=== PATIENT | male | born 1940 | race Caucasian/White ===

== ENCOUNTER → 2023-09-06 08:30 | Outpatient (REF) | payer MEDICARE, OTHER, SELFPAY | LOC: WOUND 08:30 | PROVIDERS: ATTENDING PHYSICIAN Surgery; FAMILY PHYSICIAN Physician Assistant Medical | DX: I87.311 Chronic venous hypertension (idiopathic) with ulcer of right lower extremity (principal); L97.812 Non-pressure chronic ulcer of other part of right lower leg with fat layer exposed; I87.2 Venous insufficiency (chronic) (peripheral); I10 Essential (primary) hypertension; R73.01 Impaired fasting glucose; E66.01 Morbid (severe) obesity due to excess calories | CPT/HCPCS: 29581; 99213 ==

== ENCOUNTER → 2023-09-13 08:59 | Outpatient (REF) | payer MEDICARE, OTHER, SELFPAY | LOC: WOUND 08:59 | PROVIDERS: ATTENDING PHYSICIAN Surgery; FAMILY PHYSICIAN Physician Assistant Medical | DX: I87.311 Chronic venous hypertension (idiopathic) with ulcer of right lower extremity (principal); L97.812 Non-pressure chronic ulcer of other part of right lower leg with fat layer exposed; I87.2 Venous insufficiency (chronic) (peripheral); I10 Essential (primary) hypertension; R73.01 Impaired fasting glucose; E66.01 Morbid (severe) obesity due to excess calories | CPT/HCPCS: 99213 ==

== ENCOUNTER → 2023-11-21 07:40 | Outpatient (REF) | payer MEDICARE, OTHER, SELFPAY | LOC: WOUND 07:40 | PROVIDERS: ATTENDING PHYSICIAN Surgery; FAMILY PHYSICIAN Physician Assistant Medical | DX: I87.311 Chronic venous hypertension (idiopathic) with ulcer of right lower extremity (principal); L97.212 Non-pressure chronic ulcer of right calf with fat layer exposed; C44.209 Unspecified malignant neoplasm of skin of left ear and external auricular canal; I87.2 Venous insufficiency (chronic) (peripheral); K21.9 Gastro-esophageal reflux disease without esophagitis; I10 Essential (primary) hypertension | CPT/HCPCS: 29580; 99214 ==

== ENCOUNTER → 2023-11-28 08:40 | Outpatient (REF) | payer MEDICARE, OTHER, SELFPAY | LOC: WOUND 08:40 | PROVIDERS: ATTENDING PHYSICIAN Surgery; FAMILY PHYSICIAN Physician Assistant Medical | DX: I87.311 Chronic venous hypertension (idiopathic) with ulcer of right lower extremity (principal); L97.212 Non-pressure chronic ulcer of right calf with fat layer exposed; C44.209 Unspecified malignant neoplasm of skin of left ear and external auricular canal; I87.2 Venous insufficiency (chronic) (peripheral); K21.9 Gastro-esophageal reflux disease without esophagitis; I10 Essential (primary) hypertension | CPT/HCPCS: 29580 ==

== ENCOUNTER → 2023-12-05 08:49 | Outpatient (REF) | payer MEDICARE, OTHER, SELFPAY | LOC: WOUND 08:49 | PROVIDERS: ATTENDING PHYSICIAN Surgery; FAMILY PHYSICIAN Physician Assistant Medical | DX: I87.311 Chronic venous hypertension (idiopathic) with ulcer of right lower extremity (principal); L97.212 Non-pressure chronic ulcer of right calf with fat layer exposed; C44.209 Unspecified malignant neoplasm of skin of left ear and external auricular canal; I87.2 Venous insufficiency (chronic) (peripheral); K21.9 Gastro-esophageal reflux disease without esophagitis; I10 Essential (primary) hypertension | CPT/HCPCS: 29580 ==

== ENCOUNTER → 2023-12-12 10:13 | Outpatient (REF) | payer MEDICARE, OTHER, SELFPAY | LOC: WOUND 10:13 | PROVIDERS: ATTENDING PHYSICIAN Surgery; FAMILY PHYSICIAN Physician Assistant Medical | DX: I87.311 Chronic venous hypertension (idiopathic) with ulcer of right lower extremity (principal); L97.212 Non-pressure chronic ulcer of right calf with fat layer exposed; C44.209 Unspecified malignant neoplasm of skin of left ear and external auricular canal; I87.2 Venous insufficiency (chronic) (peripheral) | CPT/HCPCS: 29580; 99212 ==

== ENCOUNTER → 2023-12-18 08:21 | Outpatient (REF) | payer MEDICARE, OTHER, SELFPAY | LOC: WOUND 08:21 | PROVIDERS: ATTENDING PHYSICIAN Surgery; FAMILY PHYSICIAN Physician Assistant Medical | DX: I87.311 Chronic venous hypertension (idiopathic) with ulcer of right lower extremity (principal); L97.212 Non-pressure chronic ulcer of right calf with fat layer exposed; C44.209 Unspecified malignant neoplasm of skin of left ear and external auricular canal; I87.2 Venous insufficiency (chronic) (peripheral); K21.9 Gastro-esophageal reflux disease without esophagitis; I10 Essential (primary) hypertension | CPT/HCPCS: 29580 ==

== ENCOUNTER → 2023-12-26 09:02 | Outpatient (REF) | payer MEDICARE, OTHER, SELFPAY | LOC: WOUND 09:02 | PROVIDERS: ATTENDING PHYSICIAN Surgery; FAMILY PHYSICIAN Physician Assistant Medical | DX: I87.311 Chronic venous hypertension (idiopathic) with ulcer of right lower extremity (principal); L97.212 Non-pressure chronic ulcer of right calf with fat layer exposed; C44.209 Unspecified malignant neoplasm of skin of left ear and external auricular canal; I87.2 Venous insufficiency (chronic) (peripheral); K21.9 Gastro-esophageal reflux disease without esophagitis; I10 Essential (primary) hypertension | CPT/HCPCS: 29580; 99212 ==

== ENCOUNTER → 2024-01-02 08:38 | Outpatient (REF) | payer MEDICARE, OTHER, SELFPAY | LOC: WOUND 08:38 | PROVIDERS: ATTENDING PHYSICIAN Surgery; FAMILY PHYSICIAN Physician Assistant Medical | DX: I87.311 Chronic venous hypertension (idiopathic) with ulcer of right lower extremity (principal); L97.212 Non-pressure chronic ulcer of right calf with fat layer exposed; I87.2 Venous insufficiency (chronic) (peripheral) | CPT/HCPCS: 99212 ==

== ENCOUNTER → 2024-01-07 07:59 | Outpatient (REF) | payer MEDICARE, OTHER, SELFPAY | LOC: WOUND 07:59 | PROVIDERS: ATTENDING PHYSICIAN Surgery; FAMILY PHYSICIAN Physician Assistant Medical | DX: I87.311 Chronic venous hypertension (idiopathic) with ulcer of right lower extremity (principal); L97.212 Non-pressure chronic ulcer of right calf with fat layer exposed; C44.209 Unspecified malignant neoplasm of skin of left ear and external auricular canal; I87.2 Venous insufficiency (chronic) (peripheral); K21.9 Gastro-esophageal reflux disease without esophagitis; I10 Essential (primary) hypertension | CPT/HCPCS: 29580; 99213 ==

== ENCOUNTER → 2024-01-16 08:47 | Outpatient (REF) | payer MEDICARE, OTHER, SELFPAY | LOC: WOUND 08:47 | PROVIDERS: ATTENDING PHYSICIAN Surgery; FAMILY PHYSICIAN Physician Assistant Medical | DX: I87.311 Chronic venous hypertension (idiopathic) with ulcer of right lower extremity (principal); L97.212 Non-pressure chronic ulcer of right calf with fat layer exposed; I87.2 Venous insufficiency (chronic) (peripheral) | CPT/HCPCS: 29580; 99213 ==

== ENCOUNTER → 2024-01-23 09:11 | Outpatient (REF) | payer MEDICARE, OTHER, SELFPAY | LOC: WOUND 09:11 | PROVIDERS: ATTENDING PHYSICIAN Surgery; FAMILY PHYSICIAN Physician Assistant Medical | DX: I87.311 Chronic venous hypertension (idiopathic) with ulcer of right lower extremity (principal); L97.212 Non-pressure chronic ulcer of right calf with fat layer exposed; I87.2 Venous insufficiency (chronic) (peripheral); I89.0 Lymphedema, not elsewhere classified; C44.209 Unspecified malignant neoplasm of skin of left ear and external auricular canal; K21.9 Gastro-esophageal reflux disease without esophagitis; I10 Essential (primary) hypertension | CPT/HCPCS: 99212 ==

== ENCOUNTER → 2024-02-24 10:02 | Outpatient (REF) | payer MEDICARE, OTHER, SELFPAY | LOC: WOUND 10:02 | PROVIDERS: ATTENDING PHYSICIAN Surgery; FAMILY PHYSICIAN Physician Assistant Medical | DX: I87.311 Chronic venous hypertension (idiopathic) with ulcer of right lower extremity (principal); L97.212 Non-pressure chronic ulcer of right calf with fat layer exposed; L97.812 Non-pressure chronic ulcer of other part of right lower leg with fat layer exposed; I87.2 Venous insufficiency (chronic) (peripheral); I89.0 Lymphedema, not elsewhere classified; C44.209 Unspecified malignant neoplasm of skin of left ear and external auricular canal; K21.9 Gastro-esophageal reflux disease without esophagitis; I10 Essential (primary) hypertension | CPT/HCPCS: 29580; 99213 ==

== ENCOUNTER → 2024-03-02 10:03 | Outpatient (REF) | payer MEDICARE, OTHER, SELFPAY | LOC: WOUND 10:03 | PROVIDERS: ATTENDING PHYSICIAN Surgery; FAMILY PHYSICIAN Physician Assistant Medical | DX: I87.311 Chronic venous hypertension (idiopathic) with ulcer of right lower extremity (principal); L97.212 Non-pressure chronic ulcer of right calf with fat layer exposed; L97.812 Non-pressure chronic ulcer of other part of right lower leg with fat layer exposed; I87.2 Venous insufficiency (chronic) (peripheral); I89.0 Lymphedema, not elsewhere classified; C44.209 Unspecified malignant neoplasm of skin of left ear and external auricular canal; K21.9 Gastro-esophageal reflux disease without esophagitis; I10 Essential (primary) hypertension | CPT/HCPCS: 29580; 99213 ==

== ENCOUNTER 2024-03-07 09:25 | Inpatient (IN) | payer MEDICARE, OTHER, SELFPAY ==
[2024-03-06] VITALS (8 sets, daily range): BP systolic 121–171; BP diastolic 66–91; PULSE 69; BMI 39.5
--- NOTE | 2024-03-06 00:35 | ED.GENMED ---
History of Present Illness
<EUGENE Marte - Last Filed: 03/06/24 01:38>
General
Chief Complaint: Skin Surface Trauma
Source: patient
Exam Limitations: none
Time Seen by Provider: 03/05/24 23:58
Nursing documentation reviewed up to this point in time: agreed with
History of Present Illness
History of Present Illness:
Pt is an 84 y/o M who is s/p Mohs surgery on nose for skin cancer today. His procedure was at 8 AM today and did not leave the surgical center until 8 PM. The pt presents today for continued bleeding from the surgical sites and postoperative orbital
edema. The pt reports MENDEZ, nausea, and lightheadedness. He also reports that he feels blood dripping from his nose to the back of his throat. He denies difficulty breathing or vomiting.
The pt has a pmhx of HTN, edema, and GERD. The pt states that he takes a daily ASA 81 mg. His records also indicate that he takes Eliquis, furosemide, cholecalciferol, Losartan, Metoprolol, and Omeprazole. The pt reports that he took all of his
medication this morning, including the ASA, Eliquis,and furosemide.
Past History
<EUGENE Marte - Last Filed: 03/06/24 01:38>
Past History
ED Past Medical History: Cancer (skin), GERD, HTN and Other (Sciatica, lymphedema, venous insufficiency)
ED Past Surgical History: Other (Mohs [facility])
Social History
Tobacco: Former smoker
Alcohol: None
Drug: None
Personal:
Living: alone
Employment: Retired
Family History
Family History: Other (Noncontributory)
Review of Systems
<EUGENE Marte - Last Filed: 03/06/24 01:38>
Review of Systems
Constitutional: Reports no symptoms
EENT: Reports no symptoms
Respiratory: Reports no symptoms
Cardiac: Reports no symptoms
ABD/GI: Reports nausea
: Reports no symptoms
Musculoskeletal: Reports no symptoms
Skin: Reports no symptoms
Neurological: Reports headache
Endocrine: Reports no symptoms
Hematologic/Lymphatic: Reports bleeding and bruising
Psychiatric: Reports no symptoms
Phy Exam
<EUGENE Marte - Last Filed: 03/06/24 01:38>
General Physical Exam
General Presentation: well appearing and mild distress
General age: appears stated age
General Skin: warm
General Habitus: normal
General Mental: alert
General Hydration: appears well hydrated
ENT Exam
ENT Exam: swallowing well
Eye Exam
Eyelid Exam: edematous: Bilateral, traumatic tissue swelling: Bilateral and hematoma: Bilateral
Cause of eyelid Inflammation: other: Bilateral (postoperative)
Cardiovascular Exam
Cardiovascular Exam: regular rate/rhythm and normal peripheral pulses
Pulmonary Exam
Pulmonary Exam: no respiratory distress
Gastrointestinal Exam
Gastrointestinal Exam: soft and non distended
Neurological Exam
Neurological Exam: alert and oriented x3
Musculoskeletal Exam
Musculoskeletal Exam: full ROM and neuro vasc intact
Skin Exam
Skin Exam: erythema and other (active bleeding from surgical sites on nose, periorbital edema)
Psychiatric Exam
Psychiatric Exam: normal mood/affect
Course
<EUGENE Marte - Last Filed: 03/06/24 01:38>
Orders/Labs/Results
Orders:
Orders
03/06/24 02:28
Complete Blood Count/With Diff Urgent
03/06/24 02:29
Comprehensive Metabolic Panel Urgent
Prothrombin Time Urgent
Vital Signs
Initial and Last Documented VS:
Initial Vital Signs
Temp Pulse Resp BP Pulse Ox
97.9 F 68 28 161/68 96
03/06/24 00:01 03/06/24 00:01 03/06/24 00:01 03/06/24 00:01 03/06/24 00:01
Last Documented Vital Signs
Temp Pulse Resp BP Pulse Ox
97.9 F 68 28 161/68 95
03/06/24 00:01 03/06/24 00:01 03/06/24 00:01 03/06/24 00:05 03/06/24 00:15
<Brenton Morgan DO - Last Filed: 03/06/24 02:38>
Orders/Labs/Results
Orders:
Orders
03/06/24 02:28
Complete Blood Count/With Diff Urgent
03/06/24 02:29
Comprehensive Metabolic Panel Urgent
Prothrombin Time Urgent
Vital Signs
Initial and Last Documented VS:
Initial Vital Signs
Temp Pulse Resp BP Pulse Ox
97.9 F 68 28 161/68 96
03/06/24 00:01 03/06/24 00:01 03/06/24 00:01 03/06/24 00:01 03/06/24 00:01
Last Documented Vital Signs
Temp Pulse Resp BP Pulse Ox
97.9 F 68 28 161/68 95
03/06/24 00:01 03/06/24 00:01 03/06/24 00:01 03/06/24 00:05 03/06/24 00:15
<EUGENE Marte - Last Filed: 03/06/24 01:38>
*Critical Care Note
Total Time (30-74mins, 75-104mins- exclusive of procedures): Not Applicable
<EUGENE Marte - Last Filed: 03/06/24 01:38>
Update Note
Update Note:
0130: Pt reported that he was feeling hot and was sweating. There is still active bleeding from the incision sites. Surgifoam was replaced and he was given water with ice.
ED Attending Note
<EUGENE Marte - Last Filed: 03/06/24 01:38>
-
Portions of this chart may have been created with voice recognition software.� Occasional wrong word or��sound alike� substitutions may have occurred due to the inherent limitations of voice recognition software.
<Brenton Morgan DO - Last Filed: 03/06/24 02:38>
ED Attending Note
Patient seen and examined by attending physician: Yes
I performed the substantive portion of visit, reviewed & personally made and approve the management plan that is documented in note by myself or SARAHI.: Yes
ED Attending Note:
Pleasant 84-year-old male that had 12 hours of Mohs surgery on his face for skin cancer. Patient presents today for continued bleeding. Patient was discharged from the outpatient surgical center around 8 PM. Patient denies fever, difficulty
breathing, or vomiting. Patient is on Eliquis. He states he took his medications this morning. Patient was seen in conjunction with the PA student. I have reviewed and agree with the history and treatment plan presented. On my independent
physical exam, patient is awake, alert, and oriented x3 patient has a midline suture from the bridge of his nose down to his upper lip. It deviates to the left side of the nose. It is bleeding right by the naris. We did put Surgifoam on the bleed
which seemed to stop it. We will continue to observe.
Bleeding seems to have stopped. With continued observation, patient's eyes are swelling to the point where they are nearly closed. He states that he could see slightly out of both eyes. Patient admits to being alone at home. I feel that he needs
to be observed in the hospital as being discharged home would be a safety risk at this point. Patient is in agreement. Discussed plan with hospitalist who agrees to admit patient. Lab work ordered.
Discharge Plan
Departure
Patient Disposition: Admit
Date of Disposition: 03/06/24
Time of Disposition: 02:37
Admit to: Med/Surg
Presentation/result/management discussed w/ accepting MD/DO: Hospitalist
Discharge Problem:
Postoperative swelling, Postoperative bleeding from incision
Prescriptions:
No Action
multivitamin 1 EACH tablet
1 ea PO DAILY
furosemide 40 MG tablet
40 mg PO BID@0800,1600
losartan 25 MG tablet
25 mg PO DAILY
metoprolol tartrate 50 MG tablet
50 mg PO BID
omeprazole 20 MG capsule,delayed release(DR/EC)
20 mg PO DAILY
cholecalciferol (vitamin D3) 2,000 UNIT tablet
2,000 unit PO DAILY
aspirin 81 mg Tablet,Delayed Release (Dr/Ec)
81 mg PO DAILY
Eliquis 5 mg Tablet
5 mg PO BID
doxycycline hyclate 100 mg capsule
100 mg PO BID Qty: 14 0RF
clotrimazole [Lotrimin AF (clotrimazole)] 1 % cream
1 applic topical Q12H Qty: 45 0RF
Referrals:
Hugo Sahu PA-C [Family Provider] -
Interventions
Interventions:
*Risk Screen - Suicide Last Done: 03/06/24 00:18
*General Assessment Last Done: 03/06/24 00:18
*Neglect/Abuse Screening Last Done: 03/06/24 00:18
ED- Fall Risk Assessment Last Done: 03/06/24 00:18
*ED COVID-19 Vaccine History Last Done: 03/06/24 00:18
ED-Skin Assessment Last Done: 03/06/24 00:18
Discharge Date and Time
Print Language: TAJIK
[2024-03-06 03:44] LABS: % Basophils 0.2 % (0-2); % Eosinophils 0.9 % (0-6); % Immature Granulocytes 0.3 % (0-0.5); % Lymphocytes 11.2 % (20.5-51.1); % Monocytes 8.6 % (1.7-9.3); % Neutrophils 78.8 % (42.2-75.2); Absolute Eosinophils 0.1 10^3/uL (0-0.7); Absolute Lymphocytes 0.7 10^3/uL (1.2-3.4); Absolute Monocytes 0.6 10^3/uL (0.1-0.6); Absolute Neutrophils 5.1 10^3/uL (1.4-6.5); Hematocrit 38.8 % (39.0-52.0); Hemoglobin 13.5 g/dL (13.0-18.0); Mean Corp Hgb Conc. 34.8 g/dL (33.0-37.0); Mean Corpuscular Hgb 31.2 pg (27.0-31.0); Mean Corpuscular Volume 89.6 fL (80.0-94.0); Nucleated Red Blood Cells % 0 % (-); Red Blood Cell Count 4.33 10^6/uL (4.70-6.10); Red Cell Dist. Width 13.5 % (11.5-14.5); White Blood Cell Count 6.5 10^3/uL (4.8-10.8)
[2024-03-06 03:53] LABS: PT 15.3 Sec (11.4-14.6)
[2024-03-06 04:11] LABS: Platelet Count 90 10^3/uL (130-400)
[2024-03-06 04:12] LABS: Mean Platelet Volume 10.2 fL (7.4-10.4)
--- NOTE | 2024-03-06 04:42 | HPS.HSE ---
Family Physician
-
Family Physician: Hugo Sahu PA-C
Chief Complaint
-
Bleeding
History of Present Illness
Patient is an 84y M with PMH significant for hypertension and chronic venous insufficiency who presents to ED complaining of bleeding / swelling s/p Mohs surgery earlier today. Patient notes that he was in the Dermatology office today from 8AM
to 8PM for Mohs surgery to the nose. Once he returned home this evening, he noted persistent bleeding from the nose and dripping into the back of the throat. This did not improve with pressure, etc at home and patient presented to the ED for
further evaluation. Patient was evaluated in the ED. Surgifoam was applied to the areas of bleeding and hemostasis achieved.
Patient was noted to have significant degree of periorbital edema / ecchymosis and his vision was impaired as a result.
Patient take ASA 81mg daily but denies any other 'blood thinners', etc.
He was previously on Eliquis (on his med list here) but this was in 2021 for a LE DVT and he is no longer on this medication.
Medical History
Past Medical History
Past Medical History: Reports Other
Additional Past Medical History:
Hypertension
Venous Insufficiency
Venous Stasis Ulcerations
History of RLE DVT
Diverticular Disease
Obesity
Skin Cancer
Past Surgical History: Reports Other
Additional Past Surgical History:
Mohs Surgery (today)
Denies any previous surgeries.
Social History
Tobacco: Non-smoker
Alcohol: None
Drug: None
Family History
Family History: Not pertinent
Allergies / Home Medications
Allergies reflects when Allergies were last updated in [facility].
Home Medications with original date entered in [facility]
Allergy/Medication List:
Patient does not recall all of his current medications.
His significant other will bring his meds / list in the AM.
Review of Systems
-
History Source: Patient
A 12 point ROS was completed and negative except as noted: Yes
Constitutional: Reports Fatigue; Denies Fever or Chills
EENT: Reports Other (Bleeding from nose. Swelling around eyes / nose.)
Respiratory: Reports Trouble Breathing (Nasal congestion / swelling.); Denies Cough
Cardiac: Denies Chest Pain or Palpitations
Abdomen/GI: Denies Abdominal Pain, Nausea, Vomiting or Diarrhea
: Denies Dysuria or Frequency
Neurological: Reports Headache; Denies Dizzy
Physical Exam
Vital Signs
Vital Signs
Temp Pulse Resp BP Pulse Ox
97.9 F 68 28 161/68 95
03/06/24 00:01 03/06/24 00:01 03/06/24 00:01 03/06/24 00:05 03/06/24 00:15
Physical Exam
General: Other (84y M in mild distress due to swelling / congestion)
HEENT: Other (Bilateral periorbital hematomas / edema - L > R. Post-surgical changes of the nose without active bleeding at present.)
Respiratory: Clear; No Wheezes, Rales or Rhonchi
Cardiac: S1/S2 and Regular Rhythm; No Murmur
GI: Soft, Non Tender, Non Distended and Normal Bowel Sounds
Musculoskeletal: No Clubbing, No Cyanosis and Other (1-2+ LE edema - b//l compression garments in place.)
Neuro: AO x 3
Laboratory Results
-
03/06/24 03:18
Laboratory Results
Total Bilirubin Cancelled 03/06/24 03:18
AST Cancelled 03/06/24 03:18
ALT Cancelled 03/06/24 03:18
Alkaline Phosphatase Cancelled 03/06/24 03:18
Impression/Plan
-
A/P: Patient is an 84y M with PMH significant for hypertension and skin cancer who presents to ED complaining of bleeding and swelling s/p Mohs procedure earlier today.
Facial Edema / Hematomas
Post-Surgical Bleeding
- Observe overnight for further evaluation and supportive care.
- Hemostasis achieved in the ED with Surgifoam, etc.
- Cold application, anti-inflammatories, etc.
- Monitor for any new / recurrent bleeding.
- Monitor for improvement in edema, visual acuity, etc.
- Would consider formal Derm evaluation.
- Patient is not apparently on any anticoagulant medications (see HPI).
Benign Hypertension
- Unclear med regimen - ? metoprolol daily by patient recollection.
- Will continue this for now with holding parameters pending formal med rec.
Chronic Venous Insufficiency
Venous Stasis Wound(s)
- Continue compression therapy.
- Follow-up with Wound Care as an outpatient as per usual.
Mild Thrombocytopenia
- Chronic. Platelets somewhat decreased from usual baseline.
- Would expect significant bleeding with count of 90k however.
- Follow for changes in platelet counts and consider transfusion if significant decrease / continued or recurrent bleeding.
Obesity due to excess calories
- Affects all aspects of care.
- Encourage healthy diet and increased activity with goal of weight loss.
DVT Prophylaxis: SCDs
Code Status: Full
[2024-03-06 05:38] LABS: ALT (SGPT) 25 U/L (0-50); AST (SGOT) 37 U/L (17-59); Albumin 3.3 g/dl (3.5-5.0); Alkaline Phosphatase 68 U/L (38-126); Blood Urea Nitrogen 18 mg/dl (9-20); Calcium 8.6 mg/dl (8.4-10.2); Carbon Dioxide 26 mmol/L (22-30); Chloride 104 mmol/L (98-107); Estimated Creatinine Clearance 86 ml/min; Glucose 110 mg/dl (70-99); Potassium 4.6 mmol/L (3.5-5.1); Sodium 139 mmol/L (135-145); Total Bilirubin 2.3 mg/dl (0.2-1.3); Total Protein 5.9 g/dl (6.3-8.2); eGFR > 60.00
--- NOTE | 2024-03-06 06:40 | PTCARENOTE ---
Pt received from ED at 0620. Pt pleasant, AAOX3, VSS, and able to walk into room. Pt complains of 6.10 MENDEZ pain and pt was given PRN tylenol. Pt receptive to room, call nix and railings. Pt bed in lowest position and call nix within reach. Pt
informed of importance of call nix usage and pt replays understanding and cooperation. Will continue with current plan of care.
[2024-03-06] MEDS: TYLENOL 650 MG PO (07:25)
[2024-03-06] MEDS: TOPROL XL 50 MG PO (08:16)
[2024-03-06] MEDS: NON-FORMULARY ITEM 1 UNIT PO ×2 (11:19→19:38)
[2024-03-06] MEDS: TORADOL 15 MG IV (14:47)
--- NOTE | 2024-03-06 15:08 | W.PN.HOSP.TC ---
Today's Communication/Plan
-
Remains with significant periorbital ecchymosis and edema to
Monitor closely.
Follow CBC including platelet level.
Physical therapy assessment.
Assessment / Plan
Assessment / Plan
Impression:
Patient is an 84y M with PMH significant for hypertension and skin cancer who presents to ED complaining of bleeding and swelling s/p Mohs procedure earlier today.
Facial Edema / Hematomas
Post-Surgical Bleeding
- Observe overnight for further evaluation and supportive care.
- Hemostasis achieved in the ED with Surgifoam, etc.
- Cold application, anti-inflammatories, etc.
- Monitor for any new / recurrent bleeding.
- Monitor for improvement in edema, visual acuity, etc.
- Patient is not apparently on any anticoagulant medications (see HPI).
Benign Hypertension
- Unclear med regimen - ? metoprolol daily by patient recollection.
- Will continue this for now with holding parameters pending formal med rec.
Chronic Venous Insufficiency
Venous Stasis Wound(s)
- Continue compression therapy.
- Follow-up with Wound Care as an outpatient as per usual.
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
- Chronic. Platelets somewhat decreased from usual baseline.
- Would expect significant bleeding with count of 90k however.
- Follow for changes in platelet counts and consider transfusion if significant decrease / continued or recurrent bleeding.
Obesity due to excess calories
- Affects all aspects of care.
- Encourage healthy diet and increased activity with goal of weight loss.
DVT Prophylaxis: SCDs
Code Status: Full
Anticipated Discharge: 24 - 48 hours
Subjective/Interval History
-
Date of Service: March 06, 2024
Objective Data
-
Labs:
Laboratory Results
03/06/24 03/06/24
03:18 05:09
WBC 6.5
Hgb 13.5
Hct 38.8 L
Plt Count 90 L
PT 15.3 H
INR 1.20
Sodium Cancelled 139
Potassium Cancelled 4.6
Chloride Cancelled 104
Carbon Dioxide Cancelled 26
BUN Cancelled 18
Creatinine Cancelled 0.8
Glucose Cancelled 110 H
Calcium Cancelled 8.6
Total Bilirubin Cancelled 2.3 H
AST Cancelled 37
ALT Cancelled 25
Alkaline Phosphatase Cancelled 68
Vital Signs:
Vital Signs
Temp Pulse Resp BP Pulse Ox
98.2 F 70 18 121/69 96
03/06/24 06:40 03/06/24 06:40 03/06/24 06:40 03/06/24 06:40 03/06/24 06:40
Physical Exam
-
General: Well Developed, Well Nourished and No Apparent Distress
HEENT: Other (Bilateral periorbital ecchymosis and edema)
Respiratory: Clear to Auscultation; Negative Wheezes or Rhonchi
Cardiac: Regular Rhythm and S1/S2; Negative Murmur
GI: Soft, Nontender, Nondistended and Normal Bowel Sounds
Musculoskeletal: No Clubbing and No Cyanosis; Negative No Edema
Neuro: Awake
Psych: Calm
--- NOTE | 2024-03-06 15:35 | CM ---
Addendum entered by Alessia Whiteside 03/06/24 15:42:
Home with [facility], Meals on Wheels information provided and [employer] for delivery information for groceries.
Original Note:
electrical and instrumentation manager reviewed patient's chart and met with patient and patient was admitted under OBS, [facility] letter provided to patient, signed and placed on chart. Patient was admitted after a fall. Patient states he lives alone in a one story home with 3
steps to enter, patient is independent with adl's and ambulation, has a quad cane and walker at home. Patient drives.
Pharmacy: [facility]
PCP: Hugo Sahu
Plan; Home when stable, patient would benefit from visiting nurses, referral sent to [facility].
--- NOTE | 2024-03-06 15:43 | VNURNOTE ---
Home Health Liaison met with patient at bedside to discuss [facility] nurse/therapy, visits, schedule and homebound status. Patient is agreeable and understands that visits at home will be 2-3 x per week to assess and teach medical management. [facility]
brochure provided with contact information. Patient is aware that [facility] will contact them for start of care in 1-2 days after discharge from .
[facility] referral completed in [facility].
[2024-03-07] MEDS: TYLENOL 650 MG PO (01:54)
[2024-03-07 05:45] LABS: Hematocrit 37.4 % (39.0-52.0); Hemoglobin 12.9 g/dL (13.0-18.0); Mean Corp Hgb Conc. 34.5 g/dL (33.0-37.0); Mean Corpuscular Hgb 31.3 pg (27.0-31.0); Mean Corpuscular Volume 90.8 fL (80.0-94.0); Mean Platelet Volume 10.7 fL (7.4-10.4); Platelet Count 81 10^3/uL (130-400); Red Blood Cell Count 4.12 10^6/uL (4.70-6.10); Red Cell Dist. Width 13.6 % (11.5-14.5)
[2024-03-07 05:54] LABS: Blood Urea Nitrogen 19 mg/dl (9-20); Calcium 8.9 mg/dl (8.4-10.2); Carbon Dioxide 31 mmol/L (22-30); Chloride 102 mmol/L (98-107); Estimated Creatinine Clearance 69 ml/min; Glucose 99 mg/dl (70-99); Potassium 5.4 mmol/L (3.5-5.1); Sodium 140 mmol/L (135-145); eGFR > 60.00
[2024-03-07 07:00] VITALS: BP 149/90
[2024-03-07] MEDS: TOPROL XL 50 MG PO (09:21)
[2024-03-07] MEDS: LASIX 40 MG PO (09:22)
[2024-03-07] MEDS: NON-FORMULARY ITEM 1 UNIT PO ×2 (09:22→19:27)
--- NOTE | 2024-03-07 09:22 | W.PN.HOSP.TC ---
Addendum entered and electronically signed by Pato Lewis MD 03/07/24 09:44:
Physical Exam
-
General: Well Developed and No Apparent Distress.
HEENT: Normocephalic, bruising noted with sutures on face/nasal bridge
Respiratory:limited, clear.
Cardiac: Regular Rhythm and S1/S2;
GI: Soft, Nontender, Nondistended and Normal Bowel Sounds;
Musculoskeletal: No Clubbing, No Cyanosis
Skin: Negative Rash
Neuro: Awake, Alert, Oriented, AO x to self and surroundings, followed commands.
Psych : calm
Original Note:
Today's Communication/Plan
-
ok to wash face with soup and water
c/w PT
Tylenol for pain
Resume Lasix.
Assessment / Plan
Assessment / Plan
Impression:
Patient is an 84y M with PMH significant for hypertension and skin cancer who presents to ED complaining of bleeding and swelling s/p Mohs procedure earlier today.
Facial Edema / Hematomas
Post-Surgical Bleeding
Acute blood loss anemia
still having bruising and edema of face but able to see more today
- Hemostasis achieved in the ED with Surgifoam, etc.
- Cold application, anti-inflammatories, etc.
- No new / recurrent bleeding.
- Patient is not apparently on any anticoagulant medications (see HPI).
- ok to wash face with soup and water
Benign Hypertension
-c/w BB
will add Lasix
- Will as k pharmacy help with meds.
Hyperkalemia, resume Lasix
Chronic Venous Insufficiency
Venous Stasis Wound(s)
- Continue compression therapy.
- Follow-up with Wound Care as an outpatient as per usual.
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
- Chronic. Platelets somewhat decreased from usual baseline.
- Would expect significant bleeding with count of 90k however.
- Follow for changes in platelet counts and consider transfusion if significant decrease / continued or recurrent bleeding.
Obesity due to excess calories
- Affects all aspects of care.
- Encourage healthy diet and increased activity with goal of weight loss.
DVT Prophylaxis: SCDs
Code Status: Full
Total time spent to see the patient, examine the patient on the floor, review data and lab results, discuss treatment plan with patient, nursing staff around 55 minutes
Anticipated Discharge: Within 24 hours
Subjective/Interval History
-
Date of Service: March 07, 2024
No chest pain
No sob
No fevers
Objective Data
-
Labs:
Laboratory Results
03/07/24
05:01
WBC 5.0
Hgb 12.9 L
Hct 37.4 L
Plt Count 81 L
Sodium 140
Potassium 5.4 H
Chloride 102
Carbon Dioxide 31 H
BUN 19
Creatinine 1.0
Glucose 99
Calcium 8.9
Vital Signs:
Vital Signs
Temp Pulse Resp BP Pulse Ox
98.6 F 64 18 149/90 95
03/07/24 07:00 03/07/24 07:00 03/07/24 07:00 03/07/24 07:00 03/07/24 07:00
I&O
03/06/24 03/07/24 03/08/24
06:59 06:59 06:59
Intake Total 720 / 720
Balance 720 / 720
[2024-03-07 15:00] VITALS: BP 143/90
[2024-03-07 23:31] VITALS: BP 119/82
[2024-03-08 07:56] VITALS: BP 109/67
[2024-03-08] MEDS: LASIX 40 MG PO (09:14)
[2024-03-08] MEDS: TOPROL XL 50 MG PO (09:14)
[2024-03-08] MEDS: NON-FORMULARY ITEM 1 UNIT PO ×2 (09:14→20:00)
[2024-03-08 09:27] LABS: Blood Urea Nitrogen 21 mg/dl (9-20); Carbon Dioxide 31 mmol/L (22-30); Chloride 99 mmol/L (98-107); Estimated Creatinine Clearance 69 ml/min; Glucose 105 mg/dl (70-99); Potassium 4.1 mmol/L (3.5-5.1); Sodium 141 mmol/L (135-145); eGFR > 60.00
[2024-03-08 09:38] LABS: Hematocrit 42.8 % (39.0-52.0); Hemoglobin 14.7 g/dL (13.0-18.0); Mean Corp Hgb Conc. 34.3 g/dL (33.0-37.0); Mean Corpuscular Volume 93.2 fL (80.0-94.0); Mean Platelet Volume 10.4 fL (7.4-10.4); Platelet Count 105 10^3/uL (130-400); Red Blood Cell Count 4.59 10^6/uL (4.70-6.10); Red Cell Dist. Width 13.8 % (11.5-14.5); White Blood Cell Count 6.8 10^3/uL (4.8-10.8)
--- NOTE | 2024-03-08 15:11 | CM ---
Patient seen bedside, discussed plan for [facility] to work with patient once stable for discharge. CM reviewed IMM with patient, patient not willing to sign at this time, left in room for patient. CM will continue to follow for all discharge planning
needs.
Plan; home with [facility].
[2024-03-08 16:00] VITALS: BP 146/85
[2024-03-08 23:38] VITALS: BP 149/79
[2024-03-09 06:35] VITALS: BMI 36.9
[2024-03-09 07:44] VITALS: BP 111/62
[2024-03-09] MEDS: TOPROL XL 50 MG PO (08:03)
[2024-03-09] MEDS: LASIX 40 MG PO (08:03)
[2024-03-09] MEDS: NON-FORMULARY ITEM 1 UNIT PO ×2 (08:03→20:14)
[2024-03-09 08:43] LABS: Glucose - Point of Care 152 mg/dl (70-99)
--- NOTE | 2024-03-09 09:28 | W.PN.HOSP.TC ---
Today's Communication/Plan
-
Discharge tomorrow
Assessment / Plan
Assessment / Plan
Impression:
Patient is an 84y M with PMH significant for hypertension and skin cancer who presents to ED complaining of bleeding and swelling s/p Mohs procedure earlier today.
Facial Edema / Hematomas
Post-Surgical Bleeding
Acute blood loss anemia
# Post operative bruising and edema of face
- He feels the swelling is less, sometime some blood spotting from nasal area
- Hemostasis achieved in the ED with Surgifoam.
- No new / recurrent bleeding. No respiratory, swallowing or vision compromise.
- Patient is not apparently on any anticoagulant medications (see HPI).
- ok to wash face with soup and water
- Monitor tonight, plan for discharge tomorrow
- PT rec home PT vs SNF
Benign Hypertension
-c/w BB
-Added Lasix
#Hyperkalemia, resumes Lasix
Resolved
Chronic Venous Insufficiency
Venous Stasis Wound(s)
- Continue compression therapy.
- Follow-up with Wound Care as an outpatient as per usual.
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
- Chronic. Platelets somewhat decreased from usual baseline.
- Would expect significant bleeding with count of 90k however.
- Follow for changes in platelet counts and consider transfusion if significant decrease / continued or recurrent bleeding.
Obesity due to excess calories
- Affects all aspects of care.
- Encourage healthy diet and increased activity with goal of weight loss.
DVT Prophylaxis: SCDs
Code Status: Full
Updated at bedside 03/09
Total time spent to see the patient on the floor, examine the patient, review data and lab results, discuss treatment plan with patient, nursing staff around 35 minutes.
Physical Exam
General: Frail, elderly, no acute distress
HEENT: Normocephalic, EOMI, MMM
Mohs surgical incision intact, no bleeding noted
Diffuse ecchymosis
Respiratory: Clear to Auscultation bilaterally
Cardiac: Normal S1/S2, Regular Rate and Rhythm
GI: Soft, Nontender, Nondistended, Normal Bowel Sounds
Extremities: No Clubbing, Cyanosis, or Edema
Neuro: Nonfocal/Grossly Intact
Psych: Calm, Cooperative
Derm: No Visible lesions
Anticipated Discharge: Within 24 hours
Subjective/Interval History
-
Date of Service: March 09, 2024
Patient complains of dry eyes. No fever, no vomiting.
Objective Data
-
Vital Signs:
Vital Signs
Temp Pulse Resp BP Pulse Ox
98.5 F 63 20 111/62 100
03/09/24 07:44 03/09/24 07:44 03/09/24 07:44 03/09/24 07:44 03/09/24 07:44
I&O
03/08/24 03/09/24 03/10/24
06:59 06:59 06:59
Intake Total 2039 720 / 720
Balance 2039 720 / 720
--- NOTE | 2024-03-09 11:16 | CM ---
Home with [facility], patient has information on Meals on Wheels, and delivery service for groceries from [employer].
Plan; Home with [facility], friend to transport patient to home.
[2024-03-09] MEDS: REFRESH EYE DROPS (PF) 1 DROPS OPHTH ×3 (13:58→20:14)
[2024-03-09 14:35] VITALS: PULSE 81
[2024-03-09 15:47] VITALS: BP 130/62
[2024-03-09 23:40] VITALS: BP 116/72
[2024-03-10 06:33] VITALS: BMI 36.7
--- NOTE | 2024-03-10 07:34 | W.PN.HOSP.TC ---
Today's Communication/Plan
-
Discharge home today
Assessment / Plan
Assessment / Plan
Impression:
Patient is an 84y M with PMH significant for hypertension and skin cancer who presents to ED complaining of bleeding and swelling s/p Mohs procedure earlier today.
Facial Edema / Hematomas
Post-Surgical Bleeding
Acute blood loss anemia
# Post operative bruising and edema of face
- Patient is NOT on eliquis at home. Was only on aspirin 81 mg daily
- He feels the swelling is less, sometime some blood spotting from nasal area
- Hemostasis achieved in the ED with Surgifoam.
- No new / recurrent bleeding. No respiratory, swallowing or vision compromise.
- Patient is not apparently on any anticoagulant medications (see HPI).
- Ok to wash face with soap and water
- Medically stable for discharge home with home PT/VN
- Continue holding aspirin 81 mg daily for 3 more days upon dc, then resume
- Follow-up with Derm later this week
Benign Hypertension
-Continue metoprolol, Lasix
-Resume losartan upon discharge
#Hyperkalemia, resumes Lasix
Resolved
Chronic Venous Insufficiency
Venous Stasis Wound(s)
- Continue compression therapy.
- Follow-up with Wound Care as an outpatient as per usual.
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
- Chronic. Platelets somewhat decreased from usual baseline.
- Would expect significant bleeding with count of 90k however.
- Follow for changes in platelet counts and consider transfusion if significant decrease / continued or recurrent bleeding.
Obesity due to excess calories
- Affects all aspects of care.
- Encourage healthy diet and increased activity with goal of weight loss.
DVT Prophylaxis: SCDs
Code Status: Full
Updated at bedside 03/09
Physical Exam
General: Frail, elderly, no acute distress
HEENT: Normocephalic, EOMI, MMM
Mohs surgical incision intact, no bleeding noted
Diffuse ecchymosis
Respiratory: Clear to Auscultation bilaterally
Cardiac: Normal S1/S2, Regular Rate and Rhythm
GI: Soft, Nontender, Nondistended, Normal Bowel Sounds
Extremities: No Clubbing, Cyanosis, or Edema
Neuro: Nonfocal/Grossly Intact
Psych: Calm, Cooperative
Derm: No Visible lesions
Anticipated Discharge: Today
Subjective/Interval History
-
Date of Service: March 10, 2024
Patient denies facial pain. No recurrence of bleeding. No fever, no vomiting.
Objective Data
-
Vital Signs:
Vital Signs
Temp Pulse Resp BP Pulse Ox
98.4 F 64 18 116/72 97
03/09/24 23:40 03/09/24 23:40 03/09/24 23:40 03/09/24 23:40 03/09/24 23:40
I&O
03/09/24 03/10/24 03/11/24
06:59 06:59 06:59
Intake Total 720 / 720 1919
Balance 720 / 720 1919
[2024-03-10 08:05] VITALS: BP 120/90
[2024-03-10] MEDS: TOPROL XL 50 MG PO (08:05)
[2024-03-10] MEDS: REFRESH EYE DROPS (PF) 1 DROPS OPHTH ×2 (08:06→11:23)
[2024-03-10] MEDS: LASIX 40 MG PO (08:06)
[2024-03-10] MEDS: NON-FORMULARY ITEM 1 UNIT PO (08:07)
[2024-03-10 10:48] VITALS: BP 143/59; O2SAT 96
[2024-03-10] MEDS: OCEAN, SALINE MIST 2 SPRAYS NASAL (11:22)
[2024-03-10] MEDS: OCEAN, SALINE MIST NASAL (11:35)
--- NOTE | 2024-03-10 11:43 | PN.CDI ---
CDI
- -
CDI:
Physician Documentation Request
Admit Date: 03/07/24 09:25
Dear Doctor Do,
Patient admitted for post-operative hematoma.
ER Physician Documentation: 'The pt presents today for continued bleeding from the surgical sites...He also reports that he feels blood dripping from his nose to the back of his throat... The pt reports that he took all of his medication this
morning, including the ASA, Eliquis,and furosemide.'
03/09 Hospitalist PN: 'Facial Edema / Hematomas. Post-Surgical Bleeding'
Please clarify the relationship between these conditions:
Yes, post-surgical bleeding is related to/exacerbated by Eliquis
No, post-surgical bleeding is not related to/exacerbated by Eliquis
Unable to determine
Use of terms such as suspected, likely, concern for, or probable (associated with a specific diagnosis that is being evaluated, monitored, or treated as if it exists) are acceptable and can be coded in the inpatient setting, when documented at the
time of discharge.
Thank you,
Esperanza Mascorro RN, BSN
CDI Specialist
Available via [place] text
Please use your independent medical judgment in providing your response.
[2024-03-10 13:05] VITALS: BP 140/76
--- NOTE | 2024-03-10 17:34 | W.DCSUMMARY ---
Discharge Summary
Discharge Data
Date of Admission: 03/07/24
Date of Discharge: 03/10/24
-
Pending Results: No
Hospital Course
Discharge diagnosis:
Postsurgical facial bleeding
Facial edema/hematoma
Recent Mohs microsurgery to the nose
Hyperkalemia
Essential hypertension
Chronic venous insufficiency
Venous stasis wound
Mild thrombocytopenia
Obesity due to excess calories
Hospital course:
84-year-old male with a past medical history of hypertension, hyperlipidemia, and chronic venous insufficiency, was admitted for postsurgical facial bleeding and facial hematoma. On the day of admission, patient had Mohs microsurgery on his nose.
Upon returning home, he had persistent bleeding, and came to the ER. Patient is no longer on Eliquis. He only takes aspirin 81 mg daily. Hemostasis was achieved in the ER with Surgifoam.
Patient had hyperkalemia. His losartan was held. His hyperkalemia resolved. He can resume losartan upon discharge.
Patient had thrombocytopenia. His platelets were 90,000 on admission, dropped to 81,000, and improved to 105,000 on the day.
Patient's facial bleeding was monitored, and he received supportive care. He did not have any recurrence of bleeding. He was able to breathe and eat. His hemoglobin was monitored, and remained normal at 14.7. He is medically stable for
discharge. He needs to follow-up with his primary care doctor and recreation officer in less than 1 week.
Disposition: Home with home care
Discharge planning: Required 39 minutes
Discharge Plan
-
Patient Disposition: Home with Home Care
Discharge Diagnosis/Procedures: Postsurgical bleeding, facial hematoma, hyperkalemia
Condition: Fair
Diet: 2 Gram Sodium
Activity: As tolerated
Driving Restrictions: As prior to admission
Activity Restrictions/Additional Instructions:
Please follow-up with your recreation officer and your family doctor in less than 1 week.
Referrals:
Luis Alberto,Hugo, PA-C [Family Provider] - in less than 1 week
Prescriptions:
New
Saline Nasal 0.65 % Aerosol,[place]
2 sprays intranasal QID 10 Days Qty: 1 0RF
Continued
multivitamin 1 EACH tablet
1 ea PO DAILY
furosemide 40 MG tablet
40 mg PO BID@0800,1600
losartan 25 MG tablet
25 mg PO DAILY
metoprolol tartrate 50 MG tablet
50 mg PO BID
omeprazole 20 MG capsule,delayed release(DR/EC)
20 mg PO DAILY
doxycycline hyclate 100 mg capsule
100 mg PO BID
mineral oil-isopropyl myristat Lotion
1 applic TOPICAL DAILY
Patient Comments:
apply to legs
cholecalciferol (vitamin D3) 50 mcg (2,000 unit) Tablet
50 mcg PO DAILY
Held
aspirin 81 mg Tablet,Delayed Release (Dr/Ec)
81 mg PO DAILY
Hold Instructions: Resume on 03/14/24.
Discharge Orders:
Discharge Patient (As Directed); Ordered 03/10/24
Ordered By: Robbie Avina
Discharge Date and Time
Discharge Date/Time: 03/10/24 13:17
Print Language: TURKISH
== END 2024-03-10 13:17 | disposition home health service (06) | DRG 920 ==
LOC: 4 WEST ACU 09:25
PROVIDERS: Internal Medicine; ADMITTING PHYSICIAN Hospitalist; ATTENDING PHYSICIAN Family Medicine; EMERGENCY PHYSICIAN Student in an Organized Health Care Education/Training Program; FAMILY PHYSICIAN Physician Assistant Medical
PROC: 2W4 Placement, Anatomical Regions, Packing (ICD-10-PCS; 2024-03-06)
DX: L76.21 Postprocedural hemorrhage of skin and subcutaneous tissue following a dermatologic procedure (principal); D62 Acute posthemorrhagic anemia; C44.301 Unspecified malignant neoplasm of skin of nose; E78.5 Hyperlipidemia, unspecified; I10 Essential (primary) hypertension; E87.5 Hyperkalemia; D69.6 Thrombocytopenia, unspecified; E66.09 Other obesity due to excess calories; I87.2 Venous insufficiency (chronic) (peripheral); I89.0 Lymphedema, not elsewhere classified; K21.9 Gastro-esophageal reflux disease without esophagitis; I87.8 Other specified disorders of veins; Z87.891 Personal history of nicotine dependence; Z86.718 Personal history of other venous thrombosis and embolism; Z68.36 Body mass index [BMI] 36.0-36.9, adult
CPT/HCPCS: 80048; 80053; 82962; 85025; 85027; 85610; 97116; 97162; 97166; 97530; 99285

== ENCOUNTER → 2024-03-11 10:56 | Outpatient (REF) | payer MEDICARE, OTHER, SELFPAY | LOC: WOUND 10:56 | PROVIDERS: ATTENDING PHYSICIAN Surgery; FAMILY PHYSICIAN Physician Assistant Medical | DX: I87.311 Chronic venous hypertension (idiopathic) with ulcer of right lower extremity (principal); L97.212 Non-pressure chronic ulcer of right calf with fat layer exposed; L97.812 Non-pressure chronic ulcer of other part of right lower leg with fat layer exposed; I87.2 Venous insufficiency (chronic) (peripheral); I89.0 Lymphedema, not elsewhere classified; C44.209 Unspecified malignant neoplasm of skin of left ear and external auricular canal; K21.9 Gastro-esophageal reflux disease without esophagitis; I10 Essential (primary) hypertension | CPT/HCPCS: 29580 ==

== ENCOUNTER → 2024-03-18 13:15 | Outpatient (REF) | payer MEDICARE, OTHER, SELFPAY | LOC: WOUND 13:15 | PROVIDERS: ATTENDING PHYSICIAN Surgery; FAMILY PHYSICIAN Physician Assistant Medical | DX: I87.311 Chronic venous hypertension (idiopathic) with ulcer of right lower extremity (principal); L97.212 Non-pressure chronic ulcer of right calf with fat layer exposed; L97.812 Non-pressure chronic ulcer of other part of right lower leg with fat layer exposed; I87.2 Venous insufficiency (chronic) (peripheral); I89.0 Lymphedema, not elsewhere classified; C44.209 Unspecified malignant neoplasm of skin of left ear and external auricular canal; K21.9 Gastro-esophageal reflux disease without esophagitis; I10 Essential (primary) hypertension | CPT/HCPCS: 99212 ==

== ENCOUNTER → 2024-03-26 10:37 | Outpatient (REF) | payer MEDICARE, OTHER, SELFPAY | LOC: WOUND 10:37 | PROVIDERS: ATTENDING PHYSICIAN Surgery; FAMILY PHYSICIAN Physician Assistant Medical | DX: I87.311 Chronic venous hypertension (idiopathic) with ulcer of right lower extremity (principal); L97.212 Non-pressure chronic ulcer of right calf with fat layer exposed; I87.2 Venous insufficiency (chronic) (peripheral); I89.0 Lymphedema, not elsewhere classified; K21.9 Gastro-esophageal reflux disease without esophagitis; I10 Essential (primary) hypertension; C44.209 Unspecified malignant neoplasm of skin of left ear and external auricular canal | CPT/HCPCS: 29580; 99213 ==

== ENCOUNTER → 2024-04-02 10:42 | Outpatient (REF) | payer MEDICARE, OTHER, SELFPAY | LOC: WOUND 10:42 | PROVIDERS: ATTENDING PHYSICIAN Surgery; FAMILY PHYSICIAN Physician Assistant Medical | DX: I87.311 Chronic venous hypertension (idiopathic) with ulcer of right lower extremity (principal); L97.212 Non-pressure chronic ulcer of right calf with fat layer exposed; I87.2 Venous insufficiency (chronic) (peripheral); I89.0 Lymphedema, not elsewhere classified; C44.209 Unspecified malignant neoplasm of skin of left ear and external auricular canal; K21.9 Gastro-esophageal reflux disease without esophagitis; I10 Essential (primary) hypertension | CPT/HCPCS: 29580; 99213 ==

== ENCOUNTER → 2024-04-09 09:50 | Outpatient (REF) | payer MEDICARE, OTHER, SELFPAY | LOC: WOUND 09:50 | PROVIDERS: ATTENDING PHYSICIAN Surgery; FAMILY PHYSICIAN Physician Assistant Medical | DX: I87.311 Chronic venous hypertension (idiopathic) with ulcer of right lower extremity (principal); L97.212 Non-pressure chronic ulcer of right calf with fat layer exposed; I87.2 Venous insufficiency (chronic) (peripheral); I89.0 Lymphedema, not elsewhere classified; C44.209 Unspecified malignant neoplasm of skin of left ear and external auricular canal; K21.9 Gastro-esophageal reflux disease without esophagitis; I10 Essential (primary) hypertension | CPT/HCPCS: 29580; 99213 ==

== ENCOUNTER → 2024-04-16 10:17 | Outpatient (REF) | payer MEDICARE, OTHER, SELFPAY | LOC: WOUND 10:17 | PROVIDERS: ATTENDING PHYSICIAN Surgery; FAMILY PHYSICIAN Physician Assistant Medical | DX: I87.311 Chronic venous hypertension (idiopathic) with ulcer of right lower extremity (principal); L97.212 Non-pressure chronic ulcer of right calf with fat layer exposed; I87.2 Venous insufficiency (chronic) (peripheral); I89.0 Lymphedema, not elsewhere classified; C44.209 Unspecified malignant neoplasm of skin of left ear and external auricular canal; K21.9 Gastro-esophageal reflux disease without esophagitis; I10 Essential (primary) hypertension | CPT/HCPCS: 99212 ==

== ENCOUNTER → 2024-07-28 07:40 | Outpatient (REF) | payer MEDICARE, OTHER, SELFPAY | LOC: WOUND 07:40 | PROVIDERS: ATTENDING PHYSICIAN Surgery; FAMILY PHYSICIAN Physician Assistant Medical | DX: I87.311 Chronic venous hypertension (idiopathic) with ulcer of right lower extremity (principal); L97.212 Non-pressure chronic ulcer of right calf with fat layer exposed; I87.2 Venous insufficiency (chronic) (peripheral); I89.0 Lymphedema, not elsewhere classified; E66.01 Morbid (severe) obesity due to excess calories; E66.09 Other obesity due to excess calories | CPT/HCPCS: 29581; 99214 ==

== ENCOUNTER → 2024-08-04 09:42 | Outpatient (REF) | payer MEDICARE, OTHER, SELFPAY | LOC: WOUND 09:42 | PROVIDERS: ATTENDING PHYSICIAN Surgery; FAMILY PHYSICIAN Physician Assistant Medical | DX: I87.311 Chronic venous hypertension (idiopathic) with ulcer of right lower extremity (principal); L97.212 Non-pressure chronic ulcer of right calf with fat layer exposed; I87.2 Venous insufficiency (chronic) (peripheral); I89.0 Lymphedema, not elsewhere classified; E66.01 Morbid (severe) obesity due to excess calories; E66.09 Other obesity due to excess calories | CPT/HCPCS: 29581; 99213 ==

== ENCOUNTER → 2024-08-11 08:39 | Outpatient (REF) | payer MEDICARE, OTHER, SELFPAY | LOC: WOUND 08:39 | PROVIDERS: ATTENDING PHYSICIAN Surgery; FAMILY PHYSICIAN Physician Assistant Medical | DX: I87.311 Chronic venous hypertension (idiopathic) with ulcer of right lower extremity (principal); L97.212 Non-pressure chronic ulcer of right calf with fat layer exposed; I87.2 Venous insufficiency (chronic) (peripheral); I89.0 Lymphedema, not elsewhere classified; E66.01 Morbid (severe) obesity due to excess calories | CPT/HCPCS: 29581 ==

== ENCOUNTER → 2024-08-18 09:21 | Outpatient (REF) | payer MEDICARE, OTHER, SELFPAY | LOC: WOUND 09:21 | PROVIDERS: ATTENDING PHYSICIAN Surgery; FAMILY PHYSICIAN Physician Assistant Medical | DX: I87.311 Chronic venous hypertension (idiopathic) with ulcer of right lower extremity (principal); L97.212 Non-pressure chronic ulcer of right calf with fat layer exposed; I87.2 Venous insufficiency (chronic) (peripheral); I89.0 Lymphedema, not elsewhere classified; E66.01 Morbid (severe) obesity due to excess calories; E66.09 Other obesity due to excess calories | CPT/HCPCS: 29581; 99213 ==

== ENCOUNTER → 2024-08-25 08:49 | Outpatient (REF) | payer MEDICARE, OTHER, SELFPAY | LOC: WOUND 08:49 | PROVIDERS: ATTENDING PHYSICIAN Surgery; FAMILY PHYSICIAN Physician Assistant Medical | DX: I87.311 Chronic venous hypertension (idiopathic) with ulcer of right lower extremity (principal); L97.212 Non-pressure chronic ulcer of right calf with fat layer exposed; I87.2 Venous insufficiency (chronic) (peripheral); I89.0 Lymphedema, not elsewhere classified; E66.01 Morbid (severe) obesity due to excess calories; E66.09 Other obesity due to excess calories | CPT/HCPCS: 99212 ==

== ENCOUNTER → 2024-08-27 08:38 | Outpatient (REF) | payer MEDICARE, OTHER, SELFPAY | LOC: RAD 08:38 | PROVIDERS: ATTENDING PHYSICIAN Surgery; FAMILY PHYSICIAN Physician Assistant Medical | DX: I87.311 Chronic venous hypertension (idiopathic) with ulcer of right lower extremity (principal); I87.2 Venous insufficiency (chronic) (peripheral) | CPT/HCPCS: 93971 ==

== ENCOUNTER → 2024-09-21 09:56 | Outpatient (REF) | payer MEDICARE, OTHER, SELFPAY | LOC: WOUND 09:56 | PROVIDERS: ATTENDING PHYSICIAN Surgery; FAMILY PHYSICIAN Physician Assistant Medical | DX: I87.311 Chronic venous hypertension (idiopathic) with ulcer of right lower extremity (principal); L97.212 Non-pressure chronic ulcer of right calf with fat layer exposed; I87.2 Venous insufficiency (chronic) (peripheral); I89.0 Lymphedema, not elsewhere classified; E66.01 Morbid (severe) obesity due to excess calories; E66.09 Other obesity due to excess calories | CPT/HCPCS: 29581; 99213 ==

== ENCOUNTER → 2024-09-28 09:52 | Outpatient (REF) | payer MEDICARE, OTHER, SELFPAY | LOC: WOUND 09:52 | PROVIDERS: ATTENDING PHYSICIAN Surgery; FAMILY PHYSICIAN Physician Assistant Medical | DX: I87.311 Chronic venous hypertension (idiopathic) with ulcer of right lower extremity (principal); L97.212 Non-pressure chronic ulcer of right calf with fat layer exposed; I87.2 Venous insufficiency (chronic) (peripheral); I89.0 Lymphedema, not elsewhere classified; E66.01 Morbid (severe) obesity due to excess calories; E66.09 Other obesity due to excess calories | CPT/HCPCS: 29581; 99213 ==

== ENCOUNTER → 2024-10-06 09:55 | Outpatient (REF) | payer MEDICARE, OTHER, SELFPAY | LOC: WOUND 09:55 | PROVIDERS: ATTENDING PHYSICIAN Surgery; FAMILY PHYSICIAN Physician Assistant Medical | DX: I87.311 Chronic venous hypertension (idiopathic) with ulcer of right lower extremity (principal); L97.212 Non-pressure chronic ulcer of right calf with fat layer exposed; I87.2 Venous insufficiency (chronic) (peripheral); I89.0 Lymphedema, not elsewhere classified; E66.01 Morbid (severe) obesity due to excess calories; E66.09 Other obesity due to excess calories | CPT/HCPCS: 29581; 99213 ==

== ENCOUNTER → 2024-10-13 09:53 | Outpatient (REF) | payer MEDICARE, OTHER, SELFPAY | LOC: WOUND 09:53 | PROVIDERS: ATTENDING PHYSICIAN Surgery; FAMILY PHYSICIAN Physician Assistant Medical | DX: I87.311 Chronic venous hypertension (idiopathic) with ulcer of right lower extremity (principal); L97.212 Non-pressure chronic ulcer of right calf with fat layer exposed; I87.2 Venous insufficiency (chronic) (peripheral); I89.0 Lymphedema, not elsewhere classified; E66.01 Morbid (severe) obesity due to excess calories; E66.09 Other obesity due to excess calories | CPT/HCPCS: 99212 ==